=== PATIENT | male | born 1940 | race Caucasian/White ===

== ENCOUNTER 2017-04-23 11:26 | Day surgery (SDC) | payer MEDICARE ==
[2017-04-23] MEDS ORDERED: PERCOCET 5/325M1 TAB PO (15:07)
[2017-04-23 16:11] VITALS: BP 120/59
== END 2017-04-23 15:54 | disposition home or self-care (01) ==
LOC: ORM 11:26
PROVIDERS: ATTEND Surgery
PROC: 0YU50JZ Supplement Right Inguinal Region with Synthetic Substitute, Open Approach (ICD-10-PCS; principal; 2017-04-23)
DX: K40.90 Unilateral inguinal hernia, without obstruction or gangrene, not specified as recurrent (principal); F17.210 Nicotine dependence, cigarettes, uncomplicated; I73.9 Peripheral vascular disease, unspecified